=== PATIENT | female | born 1965 | race American Indian/Alaskan Native ===

== ENCOUNTER 2017-02-02 11:29 | Emergency (ER) | payer OTHER ==
[2017-02-02 12:20] VITALS: BP 150/87; PULSE 55; RESP 16; TEMP 98.3; O2SAT 100
--- NOTE | 2017-02-02 13:34 | ED PDOC ---
Lower Extremity Pain/Injury Time Seen by Provider: 02/02/17 12:05 Chief Complaint (Nursing): Lower Extremity Problem/Injury Chief Complaint (Provider): right knee pain History Per: Patient History/Exam Limitations: no limitations Additional Complaint(s): 52yo female comes to the ED complaining of right knee pain. States she was seen at [facility] several months ago for the same complaint but was discharged without an XR. She went to a PMD who did an XR which was negative. She reports some right knee swelling that occurs after she starts walking for last few months. States she has been using a knee immobilizer but stopped because it has been making her knee weak. Denies any falls or trauma. States she takes Motrin 800mg 1-2x daily. she declines pain med here. She denies any acute changes and states she was referred here by a friend who told her quality of care in this ED is better than others in the area. Patient reports she has been dealing with the pain because she has not been able to find a specialist that takes her insurance. Pt ended up agreeing to xr of knee here. Past Medical History Reviewed: Historical Data, Nursing Documentation, Vital Signs Vital Signs: Last Vital Signs Temp 98.3 F 02/02/17 12:16 Pulse 55 L 02/02/17 12:16 Resp 16 02/02/17 12:16 BP 150/87 02/02/17 12:16 Pulse Ox 100 02/02/17 12:16 - Medical History PMH: Hypothyroidism - Surgical History Surgical History: No Surg Hx - Family History Family History: States: Unknown Family Hx - Social History Current smoker - smoking cessation education provided: No Alcohol: None Drugs: Denies - Home Medications Home Medications: Ambulatory Orders Medication Instructions Recorded Diclofenac Sodium [Voltaren] 4 gm TP QID PRN #1 gel..gram. 10/30/16 Levothyroxine [Levoxyl] 0.125 mg PO DAILY 10/30/16 - Allergies Allergies/Adverse Reactions: Allergies Allergy/AdvReac Type Severity Reaction Status Date / Time No Known Allergies Allergy Verified 02/02/17 12:16 Review of Systems ROS Statement: Except As Marked, All Systems Reviewed And Found Negative Musculoskeletal: Positive for: Leg Pain, Other (knee pain) Physical Exam - Reviewed Nursing Documentation Reviewed: Yes Vital Signs Reviewed: Yes - Physical Exam Appears: Positive for: Well, Non-toxic, No Acute Distress Extremity: Positive for: Normal ROM, Capillary Refill (less than 2 sec), Swelling (right knee), Other (distal pulses 2+). Negative for: Tenderness, Pedal Edema, Deformity - ECG O2 Sat by Pulse Oximetry: 100 (RA) Pulse Ox Interpretation: Normal Medical Decision Making Medical Decision Makin Patient aware that MRI & specialist care is necessary to workup her problem. Understands this cannot be treated in the ED. Patient initially refused repeat XR right knee in ED however later agreed to it. Preliminary read per this senior writer is negative for fracture. Will refer to gas operations analyst service, ortho metal fabrication supervisor , our clinic. Patient will follow up with clinic for further evaluation. Stable for discharge. 1400 Upon reevaluation patient says she feels better, and will be discharged home with a referral for orthopedics with gas operations analyst service. She will follow up as outpatient. explained to pt extensively that xr only looks at bones and she needs outpt workup with orthopedic doctor as well as an MRI to evaluate ligaments and other aspects of the knee. she understood. Scribe Attestation: Documented by Ariela Rock, acting as a scribe for Jaiden Goodwin MD. Provider Scribe Attestation: All medical record entries made by the Scribe were at my direction and personally dictated by me. I have reviewed the chart and agree that the record accurately reflects my personal performance of the history, physical exam, medical decision making, and the department course for this patient. I have also personally directed, reviewed, and agree with the discharge instructions and disposition. Disposition - Clinical Impression Clinical Impression: Knee pain - Patient ED Disposition Is Patient to be Admitted: No Counseled Patient/Family Regarding: Studies Performed, Diagnosis, Need For Followup - Disposition Referrals: [facility] [Outside] [facility] [Outside] [facility] [place] [Outside] Milton Ga III, MD [Staff Provider] - Disposition: Routine/Home Disposition Time: 13:00 Condition: GOOD Additional Instructions: follow up with orthopedist and clinic as well as instructed. return to the ED with any worsening or concerning symptoms. Instructions: Knee Pain (ED) Additional Comments - Additional Comments Additional Comments: Scribe Attestation: Documented by Darnell Paz acting as a scribe for Jaiden Goodwin MD. Provider Scribe Attestation: All medical record entries made by the Scribe were at my direction and personally dictated by me. I have reviewed the chart and agree that the record accurately reflects my personal performance of the history, physical exam, medical decision making, and the department course for this patient. I have also personally directed, reviewed, and agree with the discharge instructions and disposition.
--- NOTE | 2017-02-02 14:45 | RAD ---
PROCEDURE: Right Knee Radiographs. HISTORY: Pain. No history of recent/ related trauma provided COMPARISON: None. FINDINGS: BONES: No acute fractures. Proliferative hypertrophic changes emanating from the femoral condyle and tibial plateau JOINTS: Degenerative changes primarily affecting patellofemoral joint. JOINT EFFUSION: None. OTHER FINDINGS: None. IMPRESSION: No acute findings related to/accounting for the clinical presentation.
== END 2017-02-02 14:55 | disposition home or self-care (01) ==
LOC: H.ER 11:29
DX: M25.561 Pain in right knee (principal)